=== PATIENT | female | born 1950 | race Two or more races ===

== ENCOUNTER 2020-11-27 10:41 | Emergency (ER) | payer OTHER ==
[~2020-11-27] VITALS: Ht 157.5 cm; Wt 72.6 kg
[~2020-11-27 10:41] MED LIST: ZYRTEC10 M3 PO
[2020-11-27] MEDS ORDERED: VASOTEC10 MG (10:44)
[2020-11-27] MEDS ORDERED: SYNTHROID88 MCG (10:45)
[2020-11-27] MEDS ORDERED: PLAVIX75 MG (10:45)
[2020-11-27] MEDS ORDERED: ALPRAZOLAM ODT1 MG (10:45)
[2020-11-27] MEDS ORDERED: TOPROL XL50 M1 (10:45)
[2020-11-27] MEDS ORDERED: CRESTOR40 MG (10:46)
[2020-11-27] MEDS ORDERED: MEDROLPACK PO (15:31)
== END 2020-11-27 15:38 | disposition home or self-care (01) ==
LOC: ER 10:41
DX: R60.0 Localized edema (principal)

== ENCOUNTER 2021-04-06 11:35 | Emergency (ER) | payer OTHER ==
[~2021-04-06] VITALS: Ht 157.5 cm; Wt 75.3 kg
[~2021-04-06 11:35] MED LIST changes: +ALPRAZOLAM ODT1 MG; +CRESTOR40 MG; +MEDROLPACK PO; +PLAVIX75 MG; +SYNTHROID88 MCG; +TOPROL XL50 M1; +VASOTEC10 MG
[2021-04-06] MEDS ORDERED: ZETIA10 MG PO (12:09)
[2021-04-06] MEDS ORDERED: ACID REDUCER20 M1 PO (12:10)
== END 2021-04-06 18:15 | disposition home or self-care (01) ==
LOC: ER 11:35
DX: K29.70 Gastritis, unspecified, without bleeding (principal); R10.13 Epigastric pain